=== PATIENT | male | born 1940 ===

== ENCOUNTER 2017-11-28 15:15 | Emergency (ER) | payer MEDICARE, BC ==
--- NOTE | 2017-11-28 15:18 | ED PDOC ---
Arrival/HPI - General Time Seen by Provider: 11/28/17 15:16 Historian: Patient - History of Present Illness Narrative History of Present Illness (Text): 11/28/17 15:18 77 y/o male, pmh including htn/hld/dm/card, nkda, c/o elevated blood pressure and dizziness x 4 hours. Pt. stated that he has not been feeling well this afternoon around 12pm, checked his BP around 200s/100s, took his diovan hctz 50- 12.5 and metoprolol 50 about 2 hours ago and the BP remains the same, stated that he feels he is "floating", walking with normal gait and posture, no slurred speech, no extremity weakness, no palpitation, no night sweat, no rash, no chest pain or shortness of breath, no other medical or psychological complaints. Past Medical History - Provider Review Nursing Documentation Reviewed: Yes Family/Social History - Physician Review Nursing Documentation Reviewed: Yes Family/Social History: Unknown Family HX Allergies/Home Meds Allergies/Adverse Reactions: Allergies No Known Allergies Allergy (Verified 11/28/17 15:31) Home Medications: Home Meds Medication Instructions Recorded Confirmed Atorvastatin [Lipitor] 40 mg PO DAILY 01/17/13 11/28/17 Metoprolol Succinate 50 mg PO BID 01/17/13 11/28/17 Clopidogrel [Plavix] 75 mg PO DAILY 11/28/17 11/28/17 Folic Acid 1 mg PO DAILY 11/28/17 11/28/17 Losartan/Hydrochlorothiazide 1 tab PO DAILY 11/28/17 11/28/17 [Losartan-Hctz 50-12.5 mg Tab] Pantoprazole Sodium [Protonix] 20 mg PO DAILY 11/28/17 11/28/17 metFORMIN [glucOPHAGE] 500 mg PO BID 11/28/17 11/28/17 Review of Systems - Review of Systems Constitutional: absent: Fatigue, Fevers Eyes: absent: Vision Changes ENT: absent: Hearing Changes Respiratory: absent: SOB, Cough Cardiovascular: absent: Chest Pain Gastrointestinal: absent: Abdominal Pain, Nausea, Vomiting Musculoskeletal: absent: Arthralgias, Back Pain Skin: absent: Rash, Pruritis Neurological: Dizziness. absent: Headache, Focal Weakness, Gait Changes, Speech Changes, Facial Droop, Disequilibrium, Seizure Psychiatric: absent: Anxiety, Depression, Suicidal Ideation Physical Exam Vital Signs Reviewed: Yes Temperature: Afebrile Blood Pressure: Hypertensive Pulse: Bradycardic Respiratory Rate: Normal Appearance: Positive for: Well-Appearing, Non-Toxic, Comfortable Pain Distress: None Mental Status: Positive for: Alert and Oriented X 3 - Systems Exam Head: Present: Atraumatic, Normocephalic Pupils: Present: PERRL Extroacular Muscles: Present: EOMI Conjunctiva: Present: Normal Mouth: Present: Moist Mucous Membranes Neck: Present: Normal Range of Motion Respiratory/Chest: Present: Clear to Auscultation, Good Air Exchange. No: Respiratory Distress, Accessory Muscle Use Cardiovascular: Present: Regular Rate and Rhythm, Normal S1, S2. No: Murmurs Abdomen: No: Tenderness, Distention, Peritoneal Signs, Rebound, Guarding Back: Present: Normal Inspection Upper Extremity: Present: Normal Inspection. No: Cyanosis, Edema Lower Extremity: Present: Normal Inspection. No: Edema Neurological: Present: GCS=15, CN II-XII Intact, Speech Normal, Motor Func Grossly Intact, Gait Normal, Memory Normal, Other (normal finger to nose test, normal heel to awad test, no drift, no focal neurological deficits. ) Skin: Present: Warm, Dry, Normal Color. No: Rashes Psychiatric: Present: Alert, Oriented x 3, Normal Insight, Normal Concentration Medical Decision Making ED Course and Treatment: 11/28/17 15:51 -Labs -EKG -CT head -CXR -Clonidine 0.2mg po -Observe and reassess 11/28/17 17:59 -NIHSS is zero. -EKG: SB @ 53 BPM, no ST elevation or depression, T wave inversion on the lead III/aVF/V5V6. Pt. has no cardiopulmonary complaints. -CT head No acute intracranial abnormalities. No significant findings to account for the clinical presentation. -Chest xray No active disease -Labs show no acute findings -Mag within normal limit -BNP within normal limit -UA show no UTI -Pt.'s BP is stabilized around 150s/80s, vitally stable except he is chronic bradycardia, walking with normal gait and posture, floating sensation resolved, all labs and radiology result discussed with the patient and family, they would follow up with the pmd. -Case discussed with Dr. Nettles including labs/radiology results, recommend to discharge home with clonidine 0.1mg po bid x 3 days and follow up with pmd within 2 days, for medication adjustment. -Pt. feels well, request to be discharged home. -I spoke to his pmd/surgical forceps fabricator, Dr. Daniel Thomson, discussed about the labs/radiology and ekg (T wave inversions are chronic for him as per pmd) result/vital signs, agreed that patient can be discharged home with short term clonidine prn, he will follow up the patient in 2 days. -I discussed with the family and patient about the pmd discussion, they all agreed and happy with the plan of care. -Discharge home with clonidine, low salt diet, continue all your medications, follow up with your own pmd and surgical forceps fabricator Tobias Garcia within 2 days, return to the ER for any new or worsening signs or symptoms. - RAD Interpretation Radiology Orders: Chest xray: Date of service: 11/28/2017 HISTORY: medical clearance COMPARISON: No prior. FINDINGS: LUNGS: No active pulmonary disease. PLEURA: No significant pleural effusion identified, no pneumothorax apparent. CARDIOVASCULAR: No radiographic findings to suggest acute or significant cardiovascular disease. Incidental Finding(s): Postoperative changes related to sternotomy. OSSEOUS STRUCTURES: No significant abnormalities. VISUALIZED UPPER ABDOMEN: Normal. OTHER FINDINGS: None. IMPRESSION: No active disease. CT head: Date of service: 11/28/2017 PROCEDURE: CT HEAD WITHOUT CONTRAST. HISTORY: dizziness COMPARISON: None available. TECHNIQUE: Axial computed tomography images were obtained through the head/brain without intravenous contrast. Supplemental Coronal and Sagittal projectections created and reviewed. Radiation dose: Total exam DLP = 856.84 mGy-cm. This CT exam was performed using one or more of the following dose reduction techniques: Automated exposure control, adjustment of the mA and/or kV according to patient size, and/or use of iterative reconstruction technique. FINDINGS: HEMORRHAGE: No intracranial hemorrhage. BRAIN: No mass effect or edema. Cortical atrophy and chronic microvascular ischemic change. VENTRICLES: Unremarkable. No hydrocephalus. CALVARIUM: Unremarkable. PARANASAL SINUSES: Unremarkable as visualized. No significant inflammatory changes. MASTOID AIR CELLS: Unremarkable as visualized. No inflammatory changes. OTHER FINDINGS: None. IMPRESSION: No acute intracranial abnormalities. No significant findings to account for the clinical presentation. Physician Compensation Analyst: Radiologist - EKG Interpretation EKG Interpretation (Text): 11/28/17 17:06 SB @ 53 BPM, no ST elevation or depression, T wave inversion on the lead III/aVF/V5V6. Interpreted by ED Physician: Yes Type: 12 lead EKG - PA / REGISTERED DENTAL ASSISTANT / Resident Statement MD/DO has reviewed & agrees with the documentation as recorded. Disposition/Present on Arrival - Present on Arrival Any Indicators Present on Arrival: No History of DVT/PE: No History of Uncontrolled Diabetes: No Urinary Catheter: No History of Decub. Ulcer: No - Disposition Have Diagnosis and Disposition been Completed?: Yes Diagnosis: HTN (hypertension) Disposition: HOME/ ROUTINE Disposition Time: 17:46 Patient Plan: Discharge Patient Problems: Current Active Problems Problem Status Onset HTN (hypertension) Acute Condition: IMPROVED Additional Instructions: -Discharge home with clonidine, low salt diet, continue all your medications, follow up with your own pmd and surgical forceps fabricator Tobias Garcia within 2 days, return to the ER for any new or worsening signs or symptoms. Prescriptions: cloNIDine [Catapres] 0.1 mg PO BID PRN #6 tab PRN Reason: Other Referrals: Tobias Garcia MD [Staff Provider] - Follow up with primary [facility] [place]] - Follow up with primary Forms: WORK NOTE
[2017-11-28 15:21] VITALS: BMI 24.5
[2017-11-28 15:23] VITALS: RESP 18; TEMP 97.6
[2017-11-28 16:35] LABS: BASO # 0.01 K/mm3 (0.0-2.0); BASO % 0.2 % (0.0-3.0); EOS # 0.2 (0.0-0.7); EOS % 2.9 % (1.5-5.0); GRAN # 3.34 (1.4-6.5); GRAN % 51.2 % (50.0-68.0); HEMOGLOBIN 14.2 g/dL (14.0-18.0); LYMPH # 2.5 (1.2-3.4); LYMPH % 38.7 % (22.0-35.0); MEAN CELL VOLUME 92.1 fl (80.0-105.0); MEAN CORPUSCULAR HEMOGLOBIN 30.2 pg (25.0-35.0); MEAN CORPUSCULAR HGB CONC 32.8 g/dl (31.0-37.0); MEAN PLATELET VOLUME 10.8 fl (7.0-11.0); MONO # 0.5 (0.1-0.6); RBC 4.7 10^6/uL (3.5-6.1); RED CELL DISTRIBUTION WIDTH 12.9 % (11.5-14.5); WHITE BLOOD COUNT 6.5 10^3/ul (4.5-11.0)
[2017-11-28 16:37] LABS: PH,URINE 7.5 (4.7-8.0); URINE BILIRUBIN NEGATIVE (NEGATIVE); URINE BLOOD SMALL (NEGATIVE); URINE GLUCOSE (UA) NEGATIVE (NEGATIVE); URINE LEUKOCYTE ESTERASE NEGATIVE Leu/uL (NEGATIVE); URINE PROTEIN NEGATIVE mg/dL (<30 mg/dL); URINE UROBILINOGEN 0.2 E.U./dL (<1 E.U./dL)
[2017-11-28 16:38] LABS: URINE APPEARANCE CLEAR (CLEAR); URINE COLOR YELLOW (YELLOW)
[2017-11-28 16:39] LABS: URINE BACTERIA FEW (NEG); URINE RBC NEGATIVE /hpf (0-2)
[2017-11-28 16:46] LABS: ALB/GLOB RATIO 1.5 (1.1-1.8); ALBUMIN 4.4 g/dL (3.0-4.8); ALT/SGPT 34 U/L (7-56); AST/SGOT 33 U/L (17-59); BLOOD UREA NITROGEN 19 mg/dL (7-21); CALCIUM 9.3 mg/dL (8.4-10.5); GFR NON-AFRICAN AMERICAN > 60; INR 0.99; PARTIAL THROMBOPLASTIN TIME 34.1 Seconds (25.1-36.5); PROTHROMBIN TIME 11.3 SECONDS (9.4-12.5)
--- NOTE | 2017-11-28 16:46 | RAD ---
Date of service: 11/28/2017 HISTORY: medical clearance COMPARISON: No prior. FINDINGS: LUNGS: No active pulmonary disease. PLEURA: No significant pleural effusion identified, no pneumothorax apparent. CARDIOVASCULAR: No radiographic findings to suggest acute or significant cardiovascular disease. Incidental Finding(s): Postoperative changes related to sternotomy. OSSEOUS STRUCTURES: No significant abnormalities. VISUALIZED UPPER ABDOMEN: Normal. OTHER FINDINGS: None. IMPRESSION: No active disease.
--- NOTE | 2017-11-28 16:48 | CT ---
Date of service: 11/28/2017 PROCEDURE: CT HEAD WITHOUT CONTRAST. HISTORY: dizziness COMPARISON: None available. TECHNIQUE: Axial computed tomography images were obtained through the head/brain without intravenous contrast. Supplemental Coronal and Sagittal projectections created and reviewed. Radiation dose: Total exam DLP = 856.84 mGy-cm. This CT exam was performed using one or more of the following dose reduction techniques: Automated exposure control, adjustment of the mA and/or kV according to patient size, and/or use of iterative reconstruction technique. FINDINGS: HEMORRHAGE: No intracranial hemorrhage. BRAIN: No mass effect or edema. Cortical atrophy and chronic microvascular ischemic change. VENTRICLES: Unremarkable. No hydrocephalus. CALVARIUM: Unremarkable. PARANASAL SINUSES: Unremarkable as visualized. No significant inflammatory changes. MASTOID AIR CELLS: Unremarkable as visualized. No inflammatory changes. OTHER FINDINGS: None. IMPRESSION: No acute intracranial abnormalities. No significant findings to account for the clinical presentation.
[2017-11-28 16:54] LABS: B-TYPE NATRIURETIC PEPTIDE 139 pg/mL (0-450)
[2017-11-28 18:01] VITALS: BP 127/70; PULSE 55; O2SAT 100
--- NOTE | 2017-11-29 09:12 | CARD ---
APPROVED REPORT Date of service: 11/28/2017 EKG Measurement Heart [id number] <Conclusion> Sinus bradycardia Nonspecific ST and T wave abnormality
== END 2017-11-28 18:01 | disposition home or self-care (01) ==
LOC: ED 15:15
DX: I10 Essential (primary) hypertension (principal); E11.9 Type 2 diabetes mellitus without complications; E78.5 Hyperlipidemia, unspecified